=== PATIENT | male | born 1950 | race African-American/Black ===

== ENCOUNTER 2017-07-23 03:15 | Emergency (ER) | payer MEDICAID, OTHER ==
[~2017-07-23] VITALS: Ht 188 cm; Wt 109.0 kg
[~2017-07-23 03:15] MED LIST: CYCL-108 PO; IBUP50DR66 PO; METH10TA2
[2017-07-23] MEDS ORDERED: ASPIRIN 81MG TABLET PO STA (04:30)
[2017-07-23] MEDS ORDERED: LEVOFLOXACIN 750MG PREMIX 150 ML IV ONE (04:30)
[2017-07-23] MEDS ORDERED: IPRATROPIUM/ALBUTEROL 0.5-3(2.5)MG/3ML NEB HHN ONE (04:30)
[2017-07-23] MEDS ORDERED: KETOROLAC 30MG/ML VIAL IV STA (04:30)
[2017-07-23] MEDS ORDERED: ONDANSETRON HCL 4MG/2ML VIAL IV STA (04:30)
[2017-07-23] MEDS ORDERED: MORPHINE SULFATE 4 MG/ML CPJ (NOT FOR IM USE) IV STA (04:30)
[2017-07-23] MEDS ORDERED: METHYLPREDNISOLONE SOD SUCC 125 MG/2 ML VIAL IV STA (04:30)
[2017-07-23 05:00] LABS: BASOPHILS % 0.4 % (0.0-2.0); EOSINOPHILS % 3.5 % (0.0-5.0); HEMATOCRIT. 42.4 % (42.0-52.0); HEMOGLOBIN. 13.9 g/dL (14.0-18.0); LYMPHOCYTES % 19.5 % (20.0-50.0); MEAN CORPUSCULAR HEMOGLOBIN 30.3 pg (28.0-32.0); MEAN CORPUSCULAR VOLUME 92.1 fL (80.0-94.0); MEAN PLATELET VOLUME 10.5 fl (7.4-10.4); MONOCYTES % 8.4 % (2.0-8.0); NEUTROPHILS % 68.2 % (40.0-76.0); PLATELET 91 x1000/uL (130-400); RED CELL DISTRIBUTION WIDTH 14.4 % (11.6-14.6)
[2017-07-23 05:07] LABS: D-DIMER 0.33 mg/L FEU (<0.50); INR 1.3; PROTHROMBIN TIME 13.1 sec (9.4-11.6)
[2017-07-23 05:16] LABS: CARBON DIOXIDE 29 mEq/L (21-32); CHLORIDE 103 mEq/L (98-107); CREATINE KINASE 415 IU/L (39-308); TROPONIN I < 0.02 ng/mL (0.00-0.04)
[2017-07-23 06:12] VITALS: BP 113/64
== END 2017-07-23 06:10 | disposition home or self-care (01) ==
LOC: ER 04:11
DX: J40 Bronchitis, not specified as acute or chronic (principal); R07.89 Other chest pain; R03.0 Elevated blood-pressure reading, without diagnosis of hypertension; R74.8 Abnormal levels of other serum enzymes; B19.20 Unspecified viral hepatitis C without hepatic coma; F11.10 Opioid abuse, uncomplicated
CPT/HCPCS: 36415; 71010; 80053; 82550; 83605; 83690; 83880; 84484; 85025; 85379; 85610; 85730; 87040; 93005; 94640; 96365; 96375; 99285; J1885; J2270; J2405; J2930; J7030; J7611; Z7610; J7620

== ENCOUNTER 2019-06-17 08:35 | Emergency (ER) | payer MEDICAID, OTHER ==
[~2019-06-17] VITALS: Ht 188 cm; Wt 105.0 kg
[2019-06-17 09:43] LABS: CLARITY URINE CLOUDY (CLEAR); COLOR URINE DARK YELLOW (YELLOW); KETONES URINE TRACE (NEGATIVE); LEUKOCYTE ESTERASE URINE 2+ (NEGATIVE); NITRITE URINE POSITIVE (NEGATIVE); OCCULT BLOOD URINE NEGATIVE (NEGATIVE); PROTEIN URINE NEGATIVE (NEGATIVE); SPECIFIC GRAVITY URINE 1.028 (1.005-1.030)
[2019-06-17 10:21] VITALS: BP 132/78
== END 2019-06-17 10:22 | disposition home or self-care (01) ==
LOC: ER 08:35
DX: N39.0 Urinary tract infection, site not specified (principal); B37.49 Other urogenital candidiasis
CPT/HCPCS: 81003; 87077; 87186; 99283